=== PATIENT | male | born 1955 | race Caucasian/White ===

== ENCOUNTER 2020-02-03 14:43 | Emergency (ER) | payer MEDICAID ==
--- NOTE | 2020-02-03 15:20 | EDM.PDOC ---
ED HPI GENERAL MEDICAL PROBLEM - General Chief Complaint: Neuro Symptoms/Deficits Stated Complaint: SENT FROM EYE DOCTOR Time Seen by Provider: 02/03/20 14:50 Source of Information: Reports: Patient, RN Notes Reviewed History Limitations: Reports: No Limitations - History of Present Illness INITIAL COMMENTS - FREE TEXT/NARRATIVE: Patient presents the emergency department today sent over from clinic I did speak with primary care provider as well as eye care provider for this gentleman last known well time was 1:00 yesterday he states he sneezed real hard and then had a pain in his head he now is complaining of problems with his vision mainly on the right side, he was evaluated by the dialysis rn in [facility] who felt that he had a right temporal hemianopsia with a left nasal hemianopsia, other than his vision he has no other complaints - Related Data Allergies Allergy/AdvReac Type Severity Reaction Status Date / Time No Known Allergies Allergy Verified 02/03/20 14:57 Home Meds: Home Meds Aspirin 81 mg PO DAILY 02/03/20 [History] Lisinopril/Hydrochlorothiazide [Lisinopril-Hctz 10-12.5 mg Tab] 1 tab PO DAILY 02/03/20 [History] Ubidecarenone [Coenzyme Q-10] 200 mg PO DAILY 02/03/20 [History] atorvaSTATin [Lipitor] 80 mg PO BEDTIME 02/03/20 [History] Past Medical History HEENT History: Reports: Impaired Vision Cardiovascular History: Reports: Hypertension - Infectious Disease History Infectious Disease History: Reports: Chicken Pox Social & Family History - Caffeine Use Caffeine Use: Reports: Coffee - Recreational Drug Use Recreational Drug Use: No ED ROS GENERAL - Review of Systems Review Of Systems: See Below Constitutional: Reports: No Symptoms HEENT: Reports: Vision Change Respiratory: Reports: No Symptoms Cardiovascular: Reports: No Symptoms GI/Abdominal: Reports: No Symptoms Musculoskeletal: Reports: No Symptoms ED EXAM, NEURO - Physical Exam Exam: See Below Text/Narrative:: Visual riley are reduced on the right side extraocular eye movements intact p upils equal round and reactive light Exam Limited By: No Limitations General Appearance: Alert, WD/WN, No Apparent Distress Respiratory/Chest: No Respiratory Distress, Lungs Clear, Normal Breath Sounds, No Accessory Muscle Use, Chest Non-Tender Cardiovascular: Regular Rate, Rhythm, No Murmur GI/Abdominal: Soft, Non-Tender Course - Vital Signs Last Recorded V/S: Last Vital Signs Temp 96 F L 02/03/20 14:58 Pulse 74 02/03/20 14:58 Resp 18 02/03/20 14:58 BP 153/85 H 02/03/20 14:58 Pulse Ox 100 02/03/20 14:58 - Orders/Labs/Meds Orders: Active Orders 24 hr Category Date Time Status Ang Head [CT] Stat Exams 02/03/20 15:43 Ordered Departure - Departure Time of Disposition: 15:49 Disposition: DC/Tfer to Acute Hospital 02 Condition: Poor Clinical Impression: 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 - Discharge Information Referrals: PCP,None [Primary Care Provider] - Forms: ED Department Discharge Critical Care Note - Critical Care Note Total Time (mins): 30 Sepsis Event Note (ED) - Evaluation Sepsis Screening Result: No Definite Risk - Focused Exam Vital Signs: Vital Signs Temp Pulse Resp BP Pulse Ox 02/03/20 14:58 96 F L 74 18 153/85 H 100 02/03/20 14:57 96 F L 74 18 153/85 H 100 - My Orders Last 24 Hours: My Active Orders 02/03/20 15:43 Ang Head [CT] Stat - Assessment/Plan Last 24 Hours: My Active Orders 02/03/20 15:43 Ang Head [CT] Stat Plan: Assessment Acuity = acute Site and laterality = intraparenchymal hemorrhage with right temporal hemianopsia left nasal hemianopsia Etiology = unknown Manifestations = none Location of injury = Home Lab values = CT scan describes the hemorrhage above Plan Call discussed case Dr. Cardenas 1539 neurosurgery [facility] also discussed case with Dr. Cho 1545 emergency department physician both excepted the patient kindly except asked for CTA while waiting for air care. Will be transported via air transport This note was dictated using [employer] voice recognition software please call with any questions on syntax or grammar.
--- NOTE | 2020-02-03 15:34 | CT ---
Head wo Cont CLINICAL HISTORY: Vision loss COMPARISON: None TECHNIQUE: Transverse scans were obtained from the base of the skull through the vertex without IV contrast on a multislice, multidetector CT scanner. Prescribed dose FINDINGS: Patient is a moderate-sized area of hemorrhage in the left occipital lobe. There is some mild surrounding edema. There is some minimal adjacent mass effect. Medial to this area of hemorrhage there is some stippled calcification. There is a prominent left posterior cerebral artery. In the anterior suprasellar cistern there is a 12 x 12 x 13 mm relatively homogeneous hyperdense mass like focus. There is some inferior calcification. IMPRESSION: Moderate sized hemorrhage in the left occipital lobe which is felt to be subacute. There are some stippled calcifications and a prominent left posterior cerebral vessel felt to be the [employer]. There is an underlying vascular malformation, likely AVM. 12 x 12 x 13 mm rounded hyperdense mass in the anterior suprasellar cistern. A large aneurysm must be excluded. Craniopharyngioma can have a similar appearance. Suprasellar extension of the pituitary adenoma is felt less likely. Other suprasellar neoplasms are not excluded but felt less likely. Dr. Rivers was notified by phone at the time of this dictation at 3:30 PM
[2020-02-03] MEDS ORDERED: Sodium Chloride 0.9% 10 ML Syringe FLUSH PRN (15:50)
[2020-02-03] MEDS ORDERED: Iopamidol 755 Mg/ML 100 ML Bottle IV SCH (16:00)
--- NOTE | 2020-02-03 16:26 | CT ---
Ang Head CLINICAL HISTORY: Parenchymal hemorrhage, vision loss. COMPARISON: Noncontrast CT TECHNIQUE: Multiple volume rendered and MIP 3D reconstructions were generated from source images obtained on a spiral scanner before and after intravenous iodinated contrast enhancement Auto dosage reduction and iterative reconstruction techniques employed. FINDINGS: Internal carotid arteries: Normal course and contour Anterior cerebral arteries: There is a 13 x 12 x 11 mm anterior communicating artery aneurysm extending anteriorly superiorly. There is an atraumatic left A1 segment Middle cerebral arteries: There is a 3 x 4 mm aneurysm just off the trifurcation of the left middle cerebral artery extending anteriorly and inferiorly.. Posterior cerebral arteries: There is a large AVM off an enlarged left posterior cerebral artery. This is undergone recent the hemorrhage described on current CT. Posterior and inferiorly there is an aneurysmal portion measuring 13 x 17 mm. There is early filling of the venous sinuses. Vertebral/basilar arteries: Left vertebral artery is dominant. 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
== END 2020-02-03 16:04 ==
LOC: JP.ED 14:43
DX: I63.9 Cerebral infarction, unspecified (principal); H53.461 Homonymous bilateral field defects, right side; I10 Essential (primary) hypertension; Z79.899 Other long term (current) drug therapy; Z79.82 Long term (current) use of aspirin
CPT/HCPCS: 70450; 70496; 99285; Q9967

== ENCOUNTER 2020-02-16 02:58 | Emergency (ER) | payer MEDICAID ==
--- NOTE | 2020-02-16 03:38 | EDM.PDOC ---
ED HPI GENERAL MEDICAL PROBLEM - General Chief Complaint: Neurological Problem Stated Complaint: HEAD PAIN Time Seen by Provider: 02/16/20 03:20 Source of Information: Reports: Patient, Family History Limitations: Reports: No Limitations - History of Present Illness INITIAL COMMENTS - FREE TEXT/NARRATIVE: 64-year-old male who arrives with some vague left temporal pain when he wakes up, lasts about 5 minutes with no neurologic deficits. 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 He has a consultation coming up at [place] next week for further intervention if needed. He is supposed to be at bedrest but is up and around, his significant other convinced him to come in and get checked tonight. He currently has no symptoms other than the persistent visual field loss, when he does develop symptoms they tend to be right after he wakes up and last about 5 minutes. Onset: Unknown/Unsure (Symptoms have been recurring on a fairly regular basis at night, 3 times tonight) Duration: Minutes: (About 5 minutes) Location: Reports: Head (Left temporal area) Quality: Reports: Ache Severity: Mild Improves with: Reports: Other (Improves with about 5 minutes of time) Worsens with: Reports: Other (Seems to only occur upon getting up after sleep) Associated Symptoms: Reports: No Other Symptoms (Other than persistent visual field loss after the stroke) denies pain Pain Score (Numeric/FACES): 0 - Related Data Allergies Allergy/AdvReac Type Severity Reaction Status Date / Time No Known Allergies Allergy Verified 02/03/20 14:57 Home Meds: Home Meds Lisinopril/Hydrochlorothiazide [Lisinopril-Hctz 10-12.5 mg Tab] 1 tab PO DAILY 02/03/20 [History] Ubidecarenone [Coenzyme Q-10] 200 mg PO DAILY 02/03/20 [History] atorvaSTATin [Lipitor] 80 mg PO BEDTIME 02/03/20 [History] Past Medical History HEENT History: Reports: Impaired Vision Cardiovascular History: Reports: Hypertension Neurological History: Reports: Cerebral Aneurysms, CVA - Infectious Disease History Infectious Disease History: Reports: Chicken Pox - Past Surgical History Neurological Surgical History: Reports: Intracranial Social & Family History - Caffeine Use Caffeine Use: Reports: Coffee - Recreational Drug Use Recreational Drug Use: No ED ROS GENERAL - Review of Systems Review Of Systems: See Below Constitutional: Denies: Fever, Chills HEENT: Reports: Vision Change Respiratory: Denies: Shortness of Breath Cardiovascular: Denies: Chest Pain GI/Abdominal: Denies: Nausea, Vomiting Skin: Denies: Rash Neurological: Denies: Confusion, Dizziness ED EXAM, NEURO - Physical Exam Exam: See Below Exam Limited By: No Limitations General Appearance: Alert, No Apparent Distress Eye Exam: Bilateral Eye: EOMI, PERRL Head Exam: Atraumatic, Other (I cannot reproduce tenderness by palpating the temporal area) Neck: Supple, Non-Tender Respiratory/Chest: No Respiratory Distress Neurological: Alert, Normal Mood/Affect, Oriented x 3, Other (Romberg is negative, no pronator drift). No: Difficulty Walking Skin Exam: Warm, Dry Course - Vital Signs Last Recorded V/S: Last Vital Signs Temp 98.4 F 02/16/20 03:20 Pulse 50 L 02/16/20 03:20 Resp 14 02/16/20 03:20 BP 128/68 02/16/20 03:20 Pulse Ox 97 02/16/20 03:20 - Re-Assessments/Exams Free Text/Narrative Re-Assessment/Exam: 02/16/20 03:44 Reassured the patient that this is likely periorbital muscles that are adjusting to his visual loss when he first gets up, or symptoms related to his original stroke but did not indicate a new problem. He can call the neurosurgery department tomorrow to discuss symptoms for additional reassurance. I think he can keep his [facility] appointment as scheduled, but he should be more compliant with his bedrest instructions. Departure - Departure Time of Disposition: 03:45 Disposition: Home, Self-Care 01 Clinical Impression: Status post CVA - Discharge Information Instructions: Pain After a Stroke, Hemorrhagic Stroke Referrals: PCP,None [Primary Care Provider] - Forms: ED Department Discharge Care Plan Goals: Continue bedrest and activity as directed and recommended by your neurosurgeon. Call the neurosurgery department tomorrow to explain your symptoms for reassurance. Return anytime if worsening symptoms that are persistent. Sepsis Event Note (ED) - Evaluation Sepsis Screening Result: No Definite Risk - Focused Exam Vital Signs: Vital Signs Temp Pulse Resp BP Pulse Ox 02/16/20 03:20 98.4 F 50 L 14 128/68 97 02/16/20 03:17 98.4 F 50 L 14 128/68 97
== END 2020-02-16 03:46 | disposition home or self-care (01) ==
LOC: JP.ED 02:58
DX: I63.9 Cerebral infarction, unspecified (principal); I10 Essential (primary) hypertension; Z79.899 Other long term (current) drug therapy
CPT/HCPCS: 99283